=== PATIENT | male | born 1960 | race Caucasian/White ===

== ENCOUNTER 2019-06-05 20:35 | Emergency (ER) | payer OTHER ==
[2019-06-05 21:31] LABS: URINE BLOOD (Dip) POC 2+ (NEGATIVE); URINE GLUCOSE (Dip) POC Negative (NEGATIVE); URINE KETONES (Dip) POC Trace (NEGATIVE); URINE LEUKOCYTE EST (Dip) POC 3+ (NEGATIVE); URINE NITRITE (Dip) POC Positive (NEGATIVE); URINE TOTAL PROTEIN POC 3+ (NEGATIVE)
[2019-06-05 21:31] LABS: URINE PH (Dip) POC 5.5 (5.0-8.5)
[2019-06-05] MEDS: CEPHALEXIN 500 MG CAP PO (21:42)
== END 2019-06-05 22:15 | disposition home or self-care (01) ==
LOC: E/R 20:35
DX: N30.00 Acute cystitis without hematuria (principal)
CPT/HCPCS: 81003; 99283